=== PATIENT | male | born 1980 | race African-American/Black ===

== ENCOUNTER 2018-05-06 16:10 | Outpatient (CLI) | payer OTHER ==
--- NOTE | 2018-05-08 17:43 | MRI Report ---
Reason: ANKLE PAIN/SWELLING Procedure Date: 05/06/2018 Accession Number: [id number] / [id number] Procedure: MRI - Ankle LT W/O CPT Code: FULL RESULT: EXAM: LEFT ANKLE/HINDFOOT MRI WITHOUT CONTRAST. EXAM DATE: 05/06/2018 05:10 PM. CLINICAL HISTORY: Ankle pain/swelling. COMPARISON: None. TECHNIQUE: Multiplanar, multisequence T1-weighted and fluid-sensitive sequences of the ankle/hindfoot without contrast. Other: None. FINDINGS: Bones: Mild marrow edema of the medial navicular and medial talar head. Small osteophytes anteromedial ankle joint margin. Mild degenerative subcortical edema in the naviculocuneiform joint. Articular Cartilage: Mild cartilage thinning in the navicular cuneiform joint and anterior ankle. Ligaments: The anterior and posterior tibiofibular, anterior and posterior talofibular, and calcaneofibular ligaments are intact. The deep and superficial deltoid and spring ligaments are intact. Anterior Tendons: The tibialis anterior, extensor hallucis longus, and extensor digitorum longus tendons are unremarkable. Medial Tendons: T2 hyperintensity and mild thickening of the distal posterior tibial tendon at the navicular attachment. FDL and FHL appear normal. Lateral Tendons: The peroneus brevis and longus are unremarkable. Achilles Tendon: The Achilles tendon is unremarkable. Musculature: No edema or fatty atrophy. Other: No effusions. The contents of the sinus tarsi and tarsal tunnel are unremarkable. No plantar fasciitis. Mild soft tissue edema medial and lateral. IMPRESSION: 1. Distal posterior tibialis tendinosis. 2. Mild marrow edema in the medial navicular and medial talar head, either reactive from the posterior tibialis tendinosis or posttraumatic bone contusion. 3. 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 [facility] MUSCULOSKELETAL RADIOLOGY SECTION
== END 2018-05-06 16:11 | disposition home or self-care (01) ==
LOC: DI 16:10
PROVIDERS: ATTEND Nurse Practitioner Acute Care
DX: M67.972 Unspecified disorder of synovium and tendon, left ankle and foot (principal); M19.072 Primary osteoarthritis, left ankle and foot

== ENCOUNTER 2019-05-27 07:11 | Outpatient (CLI) | payer OTHER ==
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
== END 2019-05-27 07:12 | disposition home or self-care (01) ==
LOC: DI 07:11
PROVIDERS: ATTEND Psychiatry & Neurology Neurology
DX: G57.12 Meralgia paresthetica, left lower limb (principal)
CPT/HCPCS: 72195

== ENCOUNTER 2022-10-07 07:00 | Outpatient (CLI) | payer OTHER ==
--- NOTE | 2022-10-07 11:11 | Ultrasound Report ---
PROCEDURE: Retroperitoneal INDICATIONS: CKD, ELEVATED LIVER ENZYMES TECHNIQUE: Real-time scanning was performed of the retroperitoneal organs, with image documentation. COMPARISON: None. FINDINGS: Kidneys: Kidneys are normal in size. Right kidney measures 10.8 cm long; left kidney measures 10.3 cm long. Right renal cortical thickness is 2.2 cm; left renal cortical thickness is 2.5 cm. No nic d masses, hydronephrosis, or nephrolithiasis. Bladder: Pre-void bladder volume is 486 mL. Post-void residual is 16.5 mL. Pre-void images demonst rate no intraluminal masses or stones. On pre-void images, bilateral ureteral jets are noted with co francis Doppler interrogation. (Of note, ureteral jets may not be detectable in up to 25% of cases due t o insufficient differences in specific gravity between ureteral and bladder urine). Miscellaneous: No free abdominal fluid. Visible portion of the prostate measures 3.1 x 4.1 x 4.2 cm . IMPRESSION: 1. Normal renal size, cortical thickness, and echogenicity bilaterally. 2. Small postvoid residual and otherwise normal-appearing bladder. Reviewed by: Winnie Sr MD on 10/07/2022 11:09 AM PDT Approved by: Winnie Sr MD on 10/07/2022 11:09 AM PDT Station ID: [id number]
--- NOTE | 2022-10-07 11:14 | Ultrasound Report ---
PROCEDURE: Abdomen Limited INDICATIONS: CKD, ELEVATED LIVER ENZYMES TECHNIQUE: Real-time focused scanning was performed of the abdomen, with image documentation. COMPARISONS: None. FINDINGS: Liver: Liver is normal in size and homogeneous in echotexture. Gallbladder: The gallbladder is normal without stones, sludge, wall thickening, or pericholecystic fl uid. No sonographic Ho's sign per the technologist. Biliary ducts: Intrahepatic bile ducts may be slightly dilated. Extrahepatic bile duct caliber jossie ures 7.3 mm. Normal is 6-7 mm or less in diameter, or 10 mm or less post-cholecystectomy. Pancreas: Visualized portions of the pancreas are sonographically normal. Right kidney: Normal in size and echotexture. Right kidney measures 10.8 cm long. No hydronephrosis or nephrolithiasis. No solid masses. No complex renal cystic lesions which require follow-up. Aorta: Visualized aorta is normal in caliber at less than 3 cm. IVC: Intrahepatic inferior vena cava is patent. Miscellaneous: No free abdominal fluid. IMPRESSION: 1. Borderline extrahepatic bile duct diameter and possible mild intrahepatic biliary dilatation. Alth ough the proximal pancreas appears sonographically normal, the distal common duct is visible and not fully evaluated by ultrasound. Correlate with LFTs and consider MRCP if clinically indicated. Reviewed by: Winnie Sr MD on 10/07/2022 11:12 AM PDT Approved by: Winnie Sr MD on 10/07/2022 11:12 AM PDT Station ID: [id number]
== END 2022-10-07 07:01 | disposition home or self-care (01) ==
LOC: DI 07:00
PROVIDERS: ATTEND Internal Medicine
DX: N18.2 Chronic kidney disease, stage 2 (mild) (principal); R74.8 Abnormal levels of other serum enzymes

== ENCOUNTER 2022-11-02 11:27 | Emergency (ER) | payer OTHER ==
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
[2022-11-02] MEDS: BACITRACIN ZINC OINT 1 PACKET TOP STA (12:22)
[2022-11-02] MEDS: lidocaine 1% 20 ML MDV SUBQ ONE (12:22)
[2022-11-02 13:05] VITALS: BP 130/103
--- NOTE | 2022-11-02 13:33 | XRAY Report ---
PROCEDURE: Hand 3 View RT INDICATIONS: lac at MCP; ? fb vs fx TECHNIQUE: 3 views of the hand(s) acquired. COMPARISON: None. FINDINGS: Bones: No displaced fracture or dislocation. No radiopaque foreign body. Soft tissues: No suspicious calcifications. There is soft tissue swelling. IMPRESSION: No acute fracture or dislocation. No radiopaque foreign body. If there is high concern for occult inj ury, consider repeat radiography or cross-sectional imaging. Reviewed by: Kee Butts MD on 11/02/2022 1:32 PM PDT Approved by: Kee Butts MD on 11/02/2022 1:32 PM PDT Station ID: [id number]
== END 2022-11-02 13:04 | disposition home or self-care (01) ==
LOC: ED 11:27
DX: S66.901A Unspecified injury of unspecified muscle, fascia and tendon at wrist and hand level, right hand, initial encounter (principal); S61.011A Laceration without foreign body of right thumb without damage to nail, initial encounter; W26.9XXA Contact with unspecified sharp object(s), initial encounter
CPT/HCPCS: 12042; 73130; 99283; A9270